=== PATIENT | male | born 1955 | race Caucasian/White ===

== ENCOUNTER 2017-10-14 22:36 | Emergency (ER) | END 2017-10-15 02:24 | disposition home or self-care (01) ==

== ENCOUNTER 2018-01-24 20:46 | Emergency (ER) | END 2018-01-25 03:40 | disposition home or self-care (01) ==

== ENCOUNTER 2018-04-03 14:21 | Emergency (ER) | payer OTHER ==
[~2018-04-03] VITALS: Ht 170.2 cm; Wt 89.0 kg
[~2018-04-03 14:21] MED LIST: AMLO-147 PO; ASPI-817 PO; ATOR-2 PO; MECL-77 PO
[2018-04-03 14:24] VITALS: BP 147/90; PULSE 84; RESP 18; Ht 170.2 cm; Wt 89.0 kg
[2018-04-03] MEDS ORDERED: IBUPROFEN 800 MG TAB PO ONE (15:00)
[2018-04-03] MEDS ORDERED: NAPR-985 PO (15:26)
[2018-04-03] MEDS ORDERED: HYDR-4011 PO (15:26)
--- NOTE | 2018-04-03 15:29 | ERD ---
ER Documentation Chief Complaint Chief Complaint shoulder pain since yesterday HPI 62-year-old male presenting with right shoulder pain after trip and fall yesterday. Patient is right-hand dominant. He has not taken medications for symptoms. He denies any numbness or tingling to his hands and is able to move the fingers without difficulty. Denies other medical problems. Denies allergies to medications. Surgical history denies. Social history denies ROS All systems reviewed and are negative except as per history of present illness. Medications Home Meds Active Scripts Hydrocodone/Acetaminophen ([place] 5-325 Tablet) 1 Each Tablet, 1 TAB PO Q6H PRN for PAIN, #7 TAB Prov:HOWARD EPSTEIN PA-C 04/03/18 Naproxen* (Naprosyn*) 500 Mg Tablet, 500 MG PO BID PRN for PAIN AND/OR INFLAMMATION, #30 TAB Prov:HOWARD EPSTEIN PA-C 04/03/18 Meclizine Hcl* (Meclizine Hcl*) 25 Mg Tablet, 25 MG PO Q6H PRN for DIZZINESS, #20 TAB Prov:JIHAN CALVO MD 01/25/18 Reported Medications Aspirin* (Aspirin* EC) 81 Mg Tablet.dr, 81 MG PO DAILY, TAB 01/25/18 Atorvastatin* (Atorvastatin*) 80 Mg Tablet, 80 MG PO QHS, #30 TAB 01/25/18 Amlodipine Besylate* (Amlodipine Besylate*) 10 Mg Tablet, 10 MG PO DAILY, #30 TAB 01/25/18 Allergies Allergies: Coded Allergies: No Known Allergies (Unverified Allergy, Unknown, 01/25/18) PMhx/Soc History of Surgery: No Anesthesia Reaction: No Hx Neurological Disorder: Yes (CVA) Hx Respiratory Disorders: No Hx Cardiac Disorders: Yes (hypertension) Hx Psychiatric Problems: No Hx Alcohol Use: No Hx Substance Use: No Hx Tobacco Use: No Smoking Status: Never smoker FmHx Family History: No diabetes, No coronary disease, No other Physical Exam Vitals Vital Signs Date Temp Pulse Resp B/P (MAP) Pulse Ox O2 O2 Flow FiO2 Time Delivery Rate 04/03/18 98.6 84 18 147/90 96 14:24 (109) Physical Exam GENERAL: The patient is well-appearing, well-nourished, in no acute distress CHEST: Clear to auscultation bilaterally. There are no rales, wheezes or rhonchi. HEART: Regular rate and rhythm. No murmurs, clicks, rubs or gallops. EXTREMITIES: Tender to palpation over right shoulder with no obvious deformity. No crepitus felt on exam. Limited range of motion secondary to pain. No tenting or palpable elevation noted of the right clavicle. NEUROLOGIC: Alert and oriented. Cranial nerves II through XII intact. Motor strength in all 4 extremities with 5 out of 5 strength. Sensation grossly intact. Normal speech and gait. Babinski negative. SKIN: There is no apparent rash or petechiae. The skin is warm and dry. Results 24 hrs Current Medications Medications Dose Sig/Nubia Start Time Status Last (Trade) Ordered Route PRN Stop Time Admin Dose Reason Admin Ibuprofen 800 mg ONCE ONCE 04/03/18 DC 04/03/18 (Motrin) PO 15:00 14:58 04/03/18 15:01 Procedures/MDM DIAGNOSTIC IMAGING REPORT Patient: PIERRE GALINDO : 1955 Age: 62 Sex: M MR #: [id number] DOS: 04/03/18 1445 Ordering MD: JULI EPSTEIN PA-C Location: [facility] Room/Bed: PROCEDURE: XR right shoulder. CLINICAL INDICATION: arm pain TECHNIQUE: 3 views of the right shoulder were performed. COMPARISON: DR RODRIGUEZ 10/15/2017 FINDINGS: No acute appearing fracture or dislocation. Small ossific or calcific body adjacent to the inferior glenoid stable compared to prior exam and may be sequelae of prior [place] labral injury versus loose body. Mild to moderate degenerative changes of the glenohumeral and acromioclavicular joints, as well as moderate enthesopathic changes in the greater tuberosity. IMPRESSION: No acute fracture or dislocation. Mild to moderate degenerative changes. Stable small calcification or ossific body adjacent to the inferior glenoid which may be sequelae of old injury or loose body. ER Course: Sling Given patient in ED. Ibuprofen given ED. MDM: 62-year-old male presenting with right shoulder pain. I have low suspicion for acute fracture dislocation. Patient's x-ray is within normal limits. I have low suspicion for tendon or ligament rupture. Patient does have range of motion. I have low suspicion for compartment syndrome is compartments soft. I have low suspicion for neurovascular deficit to the distal extremities patient is neurovascularly intact and patient is able to move all digits without difficulty. Patient likely has contusion or musculoskeletal strain. He has underlying arthritis is likely exacerbated secondary to recent fall. Patient is placed in a splint however told not to avoid movement as this could cause frozen shoulder. Patient is discharged with supportive medications. Patient is recommended to follow-up with orthopedist as he may need further imaging. Patient is discharged stricter precautions. All questions answered at discharge Departure Diagnosis: Primary Impression: Injury of upper extremity Condition: Stable Patient Instructions: Contusion, Upper Extremity Referrals: [facility] (PCP) Additional Instructions: FOLLOW UP WITH YOUR PRIMARY CARE PHYSICIAN TOMORROW.Return to this facility if you are not improving as expected. HOWARD EPSTEIN PA-C Apr 03, 2018 15:29
== END 2018-04-03 15:51 | disposition home or self-care (01) ==
LOC: FTE 14:21
DX: S49.91XA Unspecified injury of right shoulder and upper arm, initial encounter (principal); I10 Essential (primary) hypertension; W01.0XXA Fall on same level from slipping, tripping and stumbling without subsequent striking against object, initial encounter; Y92.9 Unspecified place or not applicable; Z86.73 Personal history of transient ischemic attack (TIA), and cerebral infarction without residual deficits; Z79.82 Long term (current) use of aspirin
CPT/HCPCS: 73030; Z7502; Z7610